=== PATIENT | female | born 1940 | race Caucasian/White ===

== ENCOUNTER 2018-04-17 13:40 | Emergency (ER) | payer OTHER, MEDICARE ==
[2018-04-17 14:12] VITALS: BP 116/73
--- NOTE | 2018-04-17 15:21 | UC ---
Abdominal Pain Female HPI - HPI Summary HPI Summary: 78 y/o female presents to the urgent care c/o RUQ abdominal pain for the past 5 days. Pt though it was her bra which was causing pressure, then she noticed it has increase in severity w/ palpation. Pain is dull and it sometimes relief by passing gas. Pt states she eats a lot of vegetables which makes her very gassy. Pt also c/o of insect bite for the past 4 days w/ itchiness, but since she has been scratching a lot, it looks infected and bigger today. Pt denies fever, SOB , HERNANDEZ, dizziness, N/V/D, blood in the stool, chest pain, recent weight loss. Pt denies any abdominal surgeries. Her BM are normal and she has been urinating well. Pt has a colonoscopy done 2 months ago which was negative. Pt has not taking anything to alleviate symptoms. - History of Current Complaint Chief Complaint: UCAbdominalPain Stated Complaint: SIDE PAIN,BUG BITE Time Seen by Provider: 04/17/18 14:48 Hx Obtained From: Patient ?: No Onset/Duration: Gradual Onset, Lasting Days - 5 days, Still Present Timing: Intermittent Episodes Lasting: - minutes Pain Intensity: 0 Allergies/Adverse Reactions: Allergies Allergy/AdvReac Type Severity Reaction Status Date / Time No Known Allergies Allergy Verified 04/17/18 14:12 PMH/Surg Hx/FS Hx/Imm Hx - Surgical History Surgical History: Yes Surgery Procedure, Year, and Place: HEMMOHROIDECTOMY . COSMETIC FACIAL 1999. COSMETIC FACE 1988 - Social History Alcohol Use: None Alcohol Amount: 1 DRINK AT [place] Substance Use Type: None Smoking Status (MU): Former Smoker Amount Used/How Often: 1 PACK WEEK When Did the Patient Quit Smoking/Using Tobacco: 2003 - Immunization History Most Recent Influenza Vaccination: 2007 Most Recent Tetanus Shot: 12/2012 Most Recent Pneumonia Vaccination: 2006 Physical Exam - Summary Physical Exam Summary: Vital Signs Reviewed: Yes General:Patient is a well developed and nourished female who is sitting comfortable in the examining table. Patient is not in any acute respiratory distress. Eyes: Positive: Conjunctiva Clear - PERRLA, EOMI, fundi grossly normal ENT: Positive: Normal ENT inspection, Hearing grossly normal, Pharynx normal, TMs normal Neck: Positive: Supple, Nontender, No Lymphadenopathy Respiratory: Positive: Chest non-tender, Lungs clear, Normal breath sounds, No respiratory distress Cardiovascular: Positive: RRR,S1 and S2 present, No Murmur, Pulses Normal, Brisk Capillary Refill Abdomen Description: Positive: Nontender, Other: - Abd: Flat with no distention. No surface trauma, scars, incisions. hyperactive bowel sounds present in all four quadrants. No tenderness, guarding, rigidity to palpation. No masses palpated, no pulsation in epigastric area. No organomegaly. Negative Edon signs. No periumbilical tenderness. No rebound in the lower quadrants. NT over McBurneys point. Left side suprapubic tenderness with no distension. Good femoral pulses bilaterally. No hernia noted. No CVAT bilaterally Musculoskeletal: Positive: Strength Intact, ROM Intact, No Edema,FROM in all major joints, no edema, no cyanosis or clubbing. Neuro: Alert and oriented x 3. No acute neurological deficits. Speech is normal. Psychological: WNL Skin: Dry and warm Triage Information Reviewed: Yes Vital Signs: Initial Vital Signs Temp 97.9 F 04/17/18 14:08 Pulse 80 04/17/18 14:08 Resp 12 04/17/18 14:08 BP 116/73 04/17/18 14:08 Pulse Ox 99 04/17/18 14:08 Abd Pain Female Course/Dx - Course Course Of Treatment: 78 y/o female presents to the urgent care c/o RUQ abdominal pain for the past 5 days. Pt though it was her bra which was causing pressure, then she noticed it has increase in severity w/ palpation. Pain is dull and it sometimes relief by passing gas. Pt states she eats a lot of vegetables which makes her very gassy. Pt also c/o of insect bite for the past 4 days w/ itchiness, but since she has been scratching a lot, it looks infected and bigger today. Pt denies fever, SOB, HERNANDEZ, dizziness, N/V/D, blood in the stool, chest pain, recent weight loss. Pt denies any abdominal surgeries. Her BM are normal and she has been urinating well. Pt has a colonoscopy done 2 months ago which was negative. Pt has not taking anything to alleviate symptoms. Hx obtained. - Differential Dx/Diagnosis Differential Diagnosis: Appendicitis, Constipation, Gall Bladder Disease, Peptic Ulcer Disease, Urinary Tract Infection, Other - gas and bloating, cellulitis, Provider Diagnoses: 1- RUQ abdominal pain. 2- Rt forearm cellulitis s/p insect bite. 3-Gas and bloating Discharge - Sign-Out/Discharge Documenting (check all that apply): Patient Departure - D/c home All imaging exams completed and their final reports reviewed: No Studies - Discharge Plan Condition: Stable Disposition: HOME Prescriptions: Cephalexin CAP* [Keflex CAP*] 500 mg PO QID #28 cap Simethicone TAB* [Mylicon TAB*] 80 mg PO AC PRN #20 tab.chew PRN Reason: gas Triamcinolone 0.1% CREAM(NF) [Kenalog 0.1% Cream (NF)] 1 applic TOPICAL BID #1 tube Patient Education Materials: Cellulitis (ED), Acute Abdominal Pain (DC), Gas and Bloating (ED) Referrals: Arianna Munson MD [Primary Care Provider] - 1 Day Additional Instructions: 1-Please take full course of Antibiotic. 2- If redness and swelling doubles in size beyond what was demarcated after 48 hrs of taking antibiotic and fever develops please go to the ER immediately. 3-Please take Simethicone PO as directed to alleviate gas and bloating. Avoid gas producing food until symptoms resolve. Please f/u w/ your PCP Dr Munson in tomorrow's appt for further management in your symptoms. 4- At this moment we don't have ultrasound available to r/o cholecystitis. If Rt side abdominal pain becomes severe and you develop nausea, vomiting please go immediately to the Er for further evaluation and treatment. - Billing Disposition and Condition Condition: STABLE Disposition: Home
== END 2018-04-17 15:30 | disposition home or self-care (01) ==
LOC: UCEAST 13:40
DX: R10.11 Right upper quadrant pain (principal); R14.0 Abdominal distension (gaseous); L03.113 Cellulitis of right upper limb; Z87.891 Personal history of nicotine dependence
CPT/HCPCS: 81003; 99212; G0463

== ENCOUNTER 2018-06-02 16:53 | Emergency (ER) | payer OTHER, MEDICARE ==
[2018-06-02 17:17] VITALS: BP 153/82
--- NOTE | 2018-06-02 17:46 | UC ---
GI Bleed HPI - HPI Summary HPI Summary: This patient is a 78 year old F presenting to [facility] with a chief complaint of difficulty with BM and hemorrhoids since a couple weeks ago. The patient believes that she has some blockage because her stool is not going through. She gave herself a rectal exam and she was able to get through but is unsure if anything is there. She also reports that she has a small BM every morning. The patient rates the pain 5/10 in severity. Symptoms aggravated by nothing. Symptoms alleviated by nothing. Patient reports back pain (intermittent, worsened today), decreased sleep, and some abdominal discomfort. Patient denies abdominal pain, fever, and chills. The patient has stage four liver CA and had a colonoscopy in March 2018. She was seen by her PCP to take a PET scan and after waiting for her results, one of the nurses at her PCP office told her to the ED. She went to the ED in [place] but they had a 4 hour wait, so they came to [facility]. - History Of Current Complaint Chief Complaint: UCGI Stated Complaint: BACK INJURY Time Seen by Provider: 06/02/18 17:26 Hx Obtained From: Patient Onset/Duration: Sudden Onset, Lasting Weeks, Still Present Timing: Constant Severity Initially: Moderate Severity Currently: Moderate Pain Intensity: 5 Pain Scale Used: 0-10 Numeric Aggravating Factor(s): Other - nothing Alleviating Factor(s): Other - nothing Associated Signs And Symptoms: Positive: Back Pain - intermittent, worsened today, Other - reports decreased sleep, and some abdominal discomfort; denies abdominal pain, fever, and chills - Allergies/Home medications Allergies/Adverse Reactions: Allergies Allergy/AdvReac Type Severity Reaction Status Date / Time No Known Allergies Allergy Verified 06/02/18 17:17 PMH/Surg Hx/FS Hx/Imm Hx Endocrine History: Thyroid Disease, Other Other Endocrine History: denies DM Cardiovascular History: Other Other Cardiovascular History: denies HTN - Surgical History Surgical History: Yes Surgery Procedure, Year, and Place: HEMMOHROIDECTOMY . COSMETIC FACIAL 1999. COSMETIC FACE 1988 - Family History Known Family History: Positive: Other Family History: hypothyrodism - Social History Alcohol Use: None Alcohol Amount: 1 DRINK AT [place] Substance Use Type: None Smoking Status (MU): Former Smoker Amount Used/How Often: 1 PACK WEEK When Did the Patient Quit Smoking/Using Tobacco: 2003 - Immunization History Most Recent Influenza Vaccination: 2007 Most Recent Tetanus Shot: 12/2012 Most Recent Pneumonia Vaccination: 2006 Review of Systems Constitutional: Other - denies fever and chills Gastrointestinal: Other - has abdominal discomfort but denies abdominal pain Musculoskeletal: Other: - back pain Neurological: Other - decreased sleep All Other Systems Reviewed And Are Negative: Yes Physical Exam - Summary Physical Exam Summary: VITAL SIGNS: Reviewed. GENERAL: Patient is a well-developed and nourished FEMALE who is lying comfortable in the stretcher. Patient is not in any acute respiratory distress. HEAD AND FACE: Normocephalic EYES: PERRLA, EOMI x 2. EARS: Hearing grossly intact. MOUTH: Oropharynx within normal limits. NECK: Supple, trachea is midline, no adenopathy, no JVD, no carotid bruit. CHEST: Symmetric, no tenderness at palpation LUNGS: Clear to auscultation bilaterally. No wheezing or crackles. CVS: Regular rate and rhythm, S1 and S2 present, no murmurs or gallops appreciated. ABDOMEN: Soft, non-tender. Bowel sounds are normal. No abdominal abnormal pulsations. EXTREMITIES: Full ROM in all major joints, no edema, no cyanosis or clubbing. NEURO: Alert and oriented x 3. No acute neurological deficits. Speech is normal and follows commands. SKIN: Dry and warm RECTAL EXAM: Female area manager present. External hemorrhoids but not currently bleeding. Bowel is empty, no stool. Good sphincter tones. Triage Information Reviewed: Yes Vital Signs: Initial Vital Signs Temp 99.4 F 06/02/18 17:07 Pulse 67 06/02/18 17:07 Resp 16 06/02/18 17:07 BP 153/82 06/02/18 17:07 Pulse Ox 97 06/02/18 17:07 Vital Signs Reviewed: Yes Diagnostics - Radiology Abdomen XR Radiology Interpretation Completed By: Radiologist - Dr. Kirk has reviewed this radiology report. Bleed Course/Dx - Course Course Of Treatment: This patient is a 78-year-old female who came to the urgent care with Family members complaining that she is having some rectal pain. She also reports that she is having pain radiating to the back. She reports that she has liver cancer is stage IV and today she went to see the primary care physician who had order a PET scan and they awaiting for the results. She also will have an anoscopy study on June 11. She also reports that she is passing gas and she is having small bowel movements. She is to take ibuprofen for the pain which he hasn't taken today. Today she came into the emergency department because the doctor's nurse recommended to go to the emergency department for further workup and management. She reports that she went to [facility] emergency department however the waiting time was approximately 4 hours. Therefore, she decided to come to the urgent care. In the physical exam the patient is a thin female. No acute distress. The patient is ambulating with no distress. I perform an abdominal exam and she abdomen itself is nontender with positive bowel sounds. Rectal exam the patient has external hemorrhoids which are not bleeding, she has good sphincter tone, and the voult is empty. She reports that she continues to have back pain. Therefore, because of the comorbidities of the Liver cancer with metastases the patient was recommended to go to the emergency department for further workup and management. Patient understands and agrees. The patient verbalizes the importance of going to the emergency department. The patient's family member also agree and they will take the patient to the emergency department. - Differential Dx/Diagnosis Provider Diagnoses: Back pain Discharge - Sign-Out/Discharge Documenting (check all that apply): Patient Departure - to the ED All imaging exams completed and their final reports reviewed: No Studies - Discharge Plan Condition: Stable Disposition: HOME-RECOMMEND TO ED Patient Education Materials: Back Pain (ED) Referrals: Arianna Munson MD [Primary Care Provider] - Additional Instructions: Patient will be discharged to the emergency department for further workup and management. She declined ambulance transfer. - Billing Disposition and Condition Condition: STABLE Disposition: Home-Recommend to ED - Attestation Statements Document Initiated by Scribe: Yes Documenting Scribe: Trae Flores Provider For Whom Montez is Documenting (Include Credential): Jamil Kirk MD Scribe Attestation: Trae Jean, scribed for Jamil Kirk MD on 06/02/18 at 1822. Scribe Documentation Reviewed: Yes Provider Attestation: The documentation as recorded by the Trae desai accurately reflects the service I personally performed and the decisions made by me, Jamil Kirk MD
== END 2018-06-02 18:00 | disposition home health service (06) ==
LOC: UCEAST 16:53
DX: M54.9 Dorsalgia, unspecified (principal); E07.9 Disorder of thyroid, unspecified
CPT/HCPCS: 99212; G0463

== ENCOUNTER 2018-09-26 11:50 | Inpatient (IN) | payer OTHER, MEDICARE ==
[2018-09-26] MEDS ORDERED: Acetaminophen TAB* 325 MG PO PRN (15:42)
[2018-09-26] MEDS ORDERED: Senna TAB PO PRN (15:42)
[2018-09-26] MEDS ORDERED: Prochlorperazine TAB* 10 MG PO PRN (15:58)
[2018-09-26] MEDS ORDERED: Magnesium Hydroxide LIQ* 30 ML UDC PO PRN (16:21)
[2018-09-26] MEDS: oxyCODONE TAB* 5 MG TAB PO PRN (17:52)
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
[2018-09-26] MEDS: Dronabinol CAP* 2.5 MG PO SCH (21:50)
[2018-09-26] MEDS: Enoxaparin(*) 30 MG/0.3 ML SYR SUBCUT SCH (21:51)
[2018-09-26] MEDS: Docusate CAP* 100 MG PO SCH (21:54)
[2018-09-27] MEDS: oxyCODONE TAB* 5 MG TAB PO PRN ×4 (00:31→21:04)
[2018-09-27] MEDS: Levothyroxine TAB* 88 MCG TAB PO SCH (05:01)
[2018-09-27 05:16] LABS: Albumin 2.4 g/dL (3.2-5.2); BUN/Creatinine Ratio 39.5 (8-20); Calcium 7.9 mg/dL (8.6-10.3); EGFR African American 198.7 (>60); EGFR Non-African American 164.2 (>60); Globulin 2.5 g/dL (2-4); Potassium 3.9 mmol/L (3.5-5.0); Total Bilirubin 8.9 mg/dL (0.2-1.0); Total Protein 4.9 g/dL (6.4-8.9)
[2018-09-27 05:24] LABS: Hematocrit 26 % (35-47); Hemoglobin 8.8 g/dl (12.0-16.0); Mean Corpuscular HGB Conc 33 g/dl (31-36); Mean Corpuscular Hemoglobin 31 pg (27-31); Mean Corpuscular Volume 92 fL (80-97); Mean Platelet Volume 7.8 fL (7.4-10.4); Platelet Count 294 10^3/ul (150-450); Red Blood Count 2.84 10^6/ul (4.00-5.40); Red Cell Distribution Width 18 % (10.5-15); White Blood Count 9.5 10^3/ul (3.5-10.8)
[2018-09-27 05:25] LABS: ABS Nucleated RBC 0 10^3/ul; Nucleated Red Blood Cells % 0.1
[2018-09-27 05:43] LABS: Lymphocytes % 4 %; Monocytes % 5 %; Neutrophil % 87 %
[2018-09-27 05:46] LABS: Microcytosis 1+
[2018-09-27] MEDS: Docusate CAP* 100 MG PO SCH ×2 (09:20→21:05)
[2018-09-27] MEDS: Dronabinol CAP* 2.5 MG PO SCH (09:20)
[2018-09-27 16:52] LABS: Urine Appearance Cloudy; Urine Bacteria Absent (Absent); Urine Bilirubin 2+ (Negative); Urine Blood Negative (Negative); Urine Color Amber; Urine Glucose Negative (Negative); Urine Ketones Negative (Negative); Urine Nitrite Negative (Negative); Urine Protein 1+(30 mg/dL) (Negative); Urine Red Blood Cell Absent (Absent); Urine Specific Gravity 1.027 (1.010-1.030); Urine Squamous Epithelial Cell Present (Absent); Urine Transitional Epithelial Present (Absent); Urine Urobilinogen Positive (Negative); Urine White Blood Cell 3+(>20/hpf) (Absent)
--- NOTE | 2018-09-27 19:20 | PN ---
Progress Note Date of Service: 09/27/18 Note: SUJEY LANGFORD was visited. Therapy notes read and reviewed. Her PO intake and appetite remain poor and she remains confused. A U/A is consistent with a UTI and will start Levaquin for this. May need IV fluids. Current Medications: Active Medications Generic Name Dose Route Start Last Admin Trade Name Freq PRN Reason Stop Dose Admin Acetaminophen 650 mg 09/26/18 15:42 Tylenol Tab* PO Q6H PRN FEVER/PAIN Docusate Sodium 100 mg 09/26/18 21:00 09/27/18 09:20 Colace Cap* PO 100 mg BID CECELIA Administration Enoxaparin Sodium 30 mg 09/26/18 21:00 09/26/18 21:51 Lovenox(*) SUBCUT 30 mg Q24H CECELIA Administration Lactulose 15 ml 09/27/18 21:00 Lactulose* PO BID CECELIA Levofloxacin 250 mg 09/27/18 20:00 Levaquin Tab* PO Q24H CECELIA Levothyroxine Sodium 88 mcg 09/27/18 06:00 09/27/18 05:01 Synthroid Tab* PO 88 mcg DAILY@0600 CECELIA Administration Magnesium Hydroxide 30 ml 09/26/18 16:21 Milk Of Magnesia Liq* PO Q6H PRN CONSTIPATION Oxycodone HCl 5 mg 09/26/18 17:02 09/27/18 16:19 Roxycodone Tab* PO 5 mg Q4H PRN Administration PAIN - MODERATE TO SEVERE Oxycodone HCl 10 mg 09/26/18 17:04 Roxycodone Tab* PO Q4H PRN PAIN - SEVERE Prochlorperazine 10 mg 09/26/18 15:58 Compazine Tab* PO Q8HR PRN NAUSEA/VOMITING Senna 2 tab 09/26/18 15:42 Senokot Tab* PO BEDTIME PRN CONSTIPATION Vital Signs: Vital Signs Temp Pulse Resp BP Pulse Ox 98.2 F 69 18 117/65 100 09/27/18 15:35 09/27/18 15:35 09/27/18 18:44 09/27/18 15:35 09/27/18 18:09 Lab Results: Laboratory Results - last 24 hr 09/27/18 09/27/18 09/27/18 04:46 04:46 04:46 WBC 9.5 RBC 2.84 L Hgb 8.8 L Hct 26 L MCV 92 MCH 31 MCHC 33 RDW 18 H Plt Count 294 MPV 7.8 Neut % (Auto) Not Reportable Lymph % (Auto) Not Reportable Bracken % (Auto) Not Reportable Eos % (Auto) Not Reportable Baso % (Auto) Not Reportable Absolute Neuts (auto) Not Reportable Absolute Lymphs (auto) Not Reportable Absolute Monos (auto) Not Reportable Absolute Eos (auto) Not Reportable Absolute Basos (auto) Not Reportable Absolute Nucleated RBC 0 Neutrophils % 87 Lymphocytes % 4 Monocytes % 5 Eosinophils % 4 Nucleated RBC % 0.1 Normal RBC Morphology Not Reportable Hypochromasia 2+ Microcytosis 1+ Target Cells 1+ Stomatocytes 1+ Sodium 137 Potassium 3.9 Chloride 107 Carbon Dioxide 26 Anion Gap 4 BUN 15 Creatinine 0.38 L Est GFR ( Amer) 198.7 Est GFR (Non-Af Amer) 164.2 BUN/Creatinine Ratio 39.5 H Glucose 109 H Calcium 7.9 L Total Bilirubin 8.90 H AST 91 H ALT 67 H Alkaline Phosphatase 2000 H Ammonia 60 H Total Protein 4.9 L Albumin 2.4 L Globulin 2.5 Albumin/Globulin Ratio 1.0 Urine Color Urine Appearance Urine pH Ur Specific Kimball Urine Protein Urine Ketones Urine Blood Urine Nitrate Urine Bilirubin Urine Urobilinogen Ur Leukocyte Esterase Urine WBC (Auto) Urine RBC (Auto) Ur Squamous Epith Cells Ur Transition Epith Cell Urine Bacteria Urine Glucose 09/27/18 16:40 WBC RBC Hgb Hct MCV MCH MCHC RDW Plt Count MPV Neut % (Auto) Lymph % (Auto) Bracken % (Auto) Eos % (Auto) Baso % (Auto) Absolute Neuts (auto) Absolute Lymphs (auto) Absolute Monos (auto) Absolute Eos (auto) Absolute Basos (auto) Absolute Nucleated RBC Neutrophils % Lymphocytes % Monocytes % Eosinophils % Nucleated RBC % Normal RBC Morphology Hypochromasia Microcytosis Target Cells Stomatocytes Sodium Potassium Chloride Carbon Dioxide Anion Gap BUN Creatinine Est GFR ( Amer) Est GFR (Non-Af Amer) BUN/Creatinine Ratio Glucose Calcium Total Bilirubin AST ALT Alkaline Phosphatase Ammonia Total Protein Albumin Globulin Albumin/Globulin Ratio Urine Color Linda Urine Appearance Cloudy Urine pH 5.0 Ur Specific Kimball 1.027 Urine Protein 1+(30 mg/dl) A Urine Ketones Negative Urine Blood Negative Urine Nitrate Negative Urine Bilirubin 2+ A Urine Urobilinogen Positive A Ur Leukocyte Esterase 1+ A Urine WBC (Auto) 3+(>20/hpf) A Urine RBC (Auto) Absent Ur Squamous Epith Cells Present A Ur Transition Epith Cell Present A Urine Bacteria Absent Urine Glucose Negative Exam: GENERAL: Jaundiced, thin LUNGS: Clear HEART: reg rhythm ABDOMEN: Soft, +BS EXTREMITIES: Decreased bulk NEUROLOGIC: Alert, follows commands, gets confused. Moves all 4 extremities Assessment/Plan: 1. Pancreatobiliary cancer, stage IV: Chemo has not slowed progression. PT/OT. Appt at [facility] Oct 06 2. 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 Bilirubin >8. Alk Phos 2000. Ammonia 60. 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 Urinary Tract Infection: Levaquin 5. Poor PO: Marinol has not helped and may be contributing to her confusion. Will d/c. May need IVF 6. Analgesia: Oxycodone 7. DVT Prophylaxis: Lovenox 8. Advanced Directives: Full code. Daughter is HCP 09/27/18 19:22
[2018-09-27] MEDS: Levofloxacin TAB* 250 MG PO SCH (21:03)
[2018-09-27] MEDS: Lactulose* 15 ML UDC PO SCH (21:16)
[2018-09-27] MEDS: Enoxaparin(*) 30 MG/0.3 ML SYR SUBCUT SCH (21:30)
[2018-09-28] MEDS: Levothyroxine TAB* 88 MCG TAB PO SCH (06:16)
[2018-09-28] MEDS: oxyCODONE TAB* 5 MG TAB PO PRN ×3 (06:16→17:34)
[2018-09-28] MEDS: Docusate CAP* 100 MG PO SCH ×2 (08:08→20:56)
[2018-09-28] MEDS: Lactulose* 15 ML UDC PO SCH ×2 (08:08→20:54)
[2018-09-28] MEDS: Magic Mouth Was-BEN/MAAL/LIDO SWISH SPIT SCH ×3 (14:27→20:59)
--- NOTE | 2018-09-28 19:46 | PN ---
Progress Note Date of Service: 09/28/18 Note: SUJEY LANGFORD was visited. Therapy notes read and reviewed. She still has no appetite. She has edema in hands and feet likely from hypoalbunimemia. Am hesitant to give IV fluids. She does not like dairy or soy, so this makes it hard. Her daughter may try unsweetened almond milk. Little appetite. Still confused but pleasant. Her daughter is requesting Benadryl for sleep. Urine cultures: No growth Current Medications: Active Medications Generic Name Dose Route Start Last Admin Trade Name Freq PRN Reason Stop Dose Admin Acetaminophen 650 mg 09/26/18 15:42 Tylenol Tab* PO Q6H PRN FEVER/PAIN Docusate Sodium 100 mg 09/26/18 21:00 09/28/18 08:08 Colace Cap* PO Not Given BID CECELIA Enoxaparin Sodium 30 mg 09/26/18 21:00 09/27/18 21:30 Lovenox(*) SUBCUT 30 mg Q24H CECELIA Administration Lactulose 15 ml 09/27/18 21:00 09/28/18 08:08 Lactulose* PO 15 ml BID CECELIA Administration Levofloxacin 250 mg 09/27/18 20:30 09/27/18 21:03 Levaquin Tab* PO 09/28/18 23:59 250 mg Q24H CECELIA Administration Levothyroxine Sodium 88 mcg 09/27/18 06:00 09/28/18 06:16 Synthroid Tab* PO 88 mcg DAILY@0600 CECELIA Administration Magnesium Hydroxide 30 ml 09/26/18 16:21 Milk Of Magnesia Liq* PO Q6H PRN CONSTIPATION Multi-Ingredient Mouthwash/Gargle 5 ml 09/28/18 13:00 09/28/18 18:39 Magic Mouth Was-Luis/Maal/Lido* SWISH SPIT Not Given QID CECELIA Oxycodone HCl 5 mg 09/26/18 17:02 09/28/18 17:34 Roxycodone Tab* PO 5 mg Q4H PRN Administration PAIN - MODERATE TO SEVERE Oxycodone HCl 10 mg 09/26/18 17:04 Roxycodone Tab* PO Q4H PRN PAIN - SEVERE Prochlorperazine 10 mg 09/26/18 15:58 Compazine Tab* PO Q8HR PRN NAUSEA/VOMITING Senna 2 tab 09/26/18 15:42 Senokot Tab* PO BEDTIME PRN CONSTIPATION Vital Signs: Vital Signs Temp Pulse Resp BP Pulse Ox 98.4 F 71 16 138/68 100 09/28/18 15:36 09/28/18 15:36 09/28/18 17:34 09/28/18 15:36 09/28/18 15:36 Exam: GENERAL: Jaundiced, cachectic LUNGS: Clear HEART: reg rhythm ABDOMEN: Soft, +BS EXTREMITIES: Decreased bulk NEUROLOGIC: Alert, follows commands, gets confused. Moves all 4 extremities Assessment/Plan: 1. Pancreatobiliary cancer, stage IV: Chemo has not slowed progression. PT/OT. Appt at [facility] Oct 06 2. 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 Urinary Tract Infection: Levaquin. Her urine cultures were negative so will d /c 5. Poor PO: Marinol has not helped and may have added to her confusion so stopped 6. Analgesia: Oxycodone 7. DVT Prophylaxis: Lovenox 8. Advanced Directives: Full code. Daughter is HCP 09/28/18 19:46
[2018-09-28] MEDS: Levofloxacin TAB* 250 MG PO SCH (20:54)
[2018-09-28] MEDS: Enoxaparin(*) 30 MG/0.3 ML SYR SUBCUT SCH (20:56)
[2018-09-29] MEDS: oxyCODONE TAB* 5 MG TAB PO PRN ×4 (01:04→20:10)
[2018-09-29] MEDS: Levothyroxine TAB* 88 MCG TAB PO SCH (05:35)
[2018-09-29] MEDS: Docusate CAP* 100 MG PO SCH ×2 (07:32→20:04)
[2018-09-29] MEDS: Lactulose* 15 ML UDC PO SCH ×2 (07:46→20:04)
[2018-09-29] MEDS: Magic Mouth Was-BEN/MAAL/LIDO SWISH SPIT SCH ×4 (10:13→20:05)
--- NOTE | 2018-09-29 10:18 | PN ---
Progress Note Date of Service: 09/29/18 Note: SUJEY LANGFORD was visited. Nursing and therapy notes read and reviewed. Still poor appetite with minimal po. Has some mild lower abdominal discomfort. No chest pain, shortness of breath or abdominal pain. Current Medications: Active Medications Generic Name Dose Route Start Last Admin Trade Name Freq PRN Reason Stop Dose Admin Acetaminophen 650 mg 09/26/18 15:42 Tylenol Tab* PO Q6H PRN FEVER/PAIN Docusate Sodium 100 mg 09/26/18 21:00 09/29/18 07:32 Colace Cap* PO Not Given BID CECELIA Enoxaparin Sodium 30 mg 09/26/18 21:00 09/28/18 20:56 Lovenox(*) SUBCUT 30 mg Q24H CECELIA Administration Lactulose 15 ml 09/27/18 21:00 09/29/18 07:46 Lactulose* PO 15 ml BID CECELIA Administration Levothyroxine Sodium 88 mcg 09/27/18 06:00 09/29/18 05:35 Synthroid Tab* PO 88 mcg DAILY@0600 [facility] Administration Magnesium Hydroxide 30 ml 09/26/18 16:21 Milk Of Magnesia Liq* PO Q6H PRN CONSTIPATION Multi-Ingredient Mouthwash/Gargle 5 ml 09/28/18 13:00 09/29/18 10:13 Magic Mouth Was-Luis/Maal/Lido* SWISH SPIT 5 ml QID CECELIA Administration Oxycodone HCl 5 mg 09/26/18 17:02 09/29/18 07:46 Roxycodone Tab* PO 5 mg Q4H PRN Administration PAIN - MODERATE TO SEVERE Oxycodone HCl 10 mg 09/26/18 17:04 Roxycodone Tab* PO Q4H PRN PAIN - SEVERE Prochlorperazine 10 mg 09/26/18 15:58 Compazine Tab* PO Q8HR PRN NAUSEA/VOMITING Senna 2 tab 09/26/18 15:42 Senokot Tab* PO BEDTIME PRN CONSTIPATION Vital Signs: Vital Signs Temp Pulse Resp BP Pulse Ox 98.6 F 84 16 126/67 99 09/29/18 05:37 09/29/18 05:37 09/29/18 07:46 09/29/18 05:37 09/29/18 05:37 Exam: GENERAL: Jaundiced, cachectic. No acute distress. Alert and appropriate. LUNGS: Clear to auscultation bilaterally. HEART: regular rate and rhythm ABDOMEN: Soft, +bowel sounds, non-tender, non-distended. No peritoneal signs. EXTREMITIES: Bilateral LE edema. Negative Homans. No calf pain. NEUROLOGIC: CN II-XII intact. Motor 4+/5 BUE and BLE with normal sensation. Assessment/Plan: 1. Pancreatobiliary cancer, stage IV: Chemo has not slowed progression. PT/OT. Appt at [facility] Oct 06 2. 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 Urinary Tract Infection: s/p Levaquin. Her urine cultures were negative so will d/c 5. Poor PO: Marinol did not help and may have added to her confusion so d/c'd 6. Analgesia: Oxycodone prn 7. DVT Prophylaxis: Lovenox 8. Advanced Directives: Full code. Daughter is HCP 09/29/18 10:17
--- NOTE | 2018-09-29 14:46 | CONSULT ---
Palliative / Hospice Consult Ordering Provider: Annita Rosado - Subjective Code Status: DNR Advance Directives Location: No Advance Directives MOLST Part A Completed: Yes - completed with pt and daughter Date: 09/29/18 MOLST Part E Completed:: Yes - completed with pt and daughter Date: 09/29/18 - History or Present Illness History or Present Illness: 78 yo female with pancreatic biliary cancer and cholangioma cancer diagnosed 2017 was treated at [facility] for stent placement due to hepatic mass met which was causing elevated bilirubin. She was transferred to [facility] for rehab. Her other medical problems include hypothyroidism, hepatic encephalopathy and current UTI. She has received 3 cycles of chemo with no improvement with her cancer. She is a non smoker, no drugs and no ETOH use living with her daughter. Her passed several years ago with Lung Ca. He was on on hospice after a trial of chemotherapy. She has lost 7 kilos since Apr. Her albumin is 2.4, her tprot 4.9, tbili 8.9, alk phos 2000, ammonia 60 BUN/Cr 15/.38 egfr 164. Lab Values: Laboratory Last Values WBC 9.5 10^3/ul (3.5-10.8) 09/27/18 04:46 RBC 2.84 10^6/ul (4.00-5.40) L 09/27/18 04:46 Hgb 8.8 g/dl (12.0-16.0) L 09/27/18 04:46 Hct 26 % (35-47) L 09/27/18 04:46 MCV 92 fL (80-97) 09/27/18 04:46 MCH 31 pg (27-31) 09/27/18 04:46 MCHC 33 g/dl (31-36) 09/27/18 04:46 RDW 18 % (10.5-15) H 09/27/18 04:46 Plt Count 294 10^3/ul (150-450) 09/27/18 04:46 MPV 7.8 fL (7.4-10.4) 09/27/18 04:46 Neut % (Auto) Not Reportable 09/27/18 04:46 Lymph % (Auto) Not Reportable 09/27/18 04:46 [place] % (Auto) Not Reportable 09/27/18 04:46 Eos % (Auto) Not Reportable 09/27/18 04:46 Baso % (Auto) Not Reportable 09/27/18 04:46 Absolute Neuts (auto) Not Reportable 09/27/18 04:46 Absolute Lymphs (auto) Not Reportable 09/27/18 04:46 Absolute Monos (auto) Not Reportable 09/27/18 04:46 Absolute Eos (auto) Not Reportable 09/27/18 04:46 Absolute Basos (auto) Not Reportable 09/27/18 04:46 Absolute Nucleated RBC 0 10^3/ul 09/27/18 04:46 Neutrophils % 87 % 09/27/18 04:46 Lymphocytes % 4 % 09/27/18 04:46 Monocytes % 5 % 09/27/18 04:46 Eosinophils % 4 % 09/27/18 04:46 Nucleated RBC % 0.1 09/27/18 04:46 Normal RBC Morphology Not Reportable 09/27/18 04:46 Hypochromasia 2+ 09/27/18 04:46 Microcytosis 1+ 09/27/18 04:46 Target Cells 1+ 09/27/18 04:46 Stomatocytes 1+ 09/27/18 04:46 Sodium 137 mmol/L (135-145) 09/27/18 04:46 Potassium 3.9 mmol/L (3.5-5.0) 09/27/18 04:46 Chloride 107 mmol/L (101-111) 09/27/18 04:46 Carbon Dioxide 26 mmol/L (22-32) 09/27/18 04:46 Anion Gap 4 mmol/L (2-11) 09/27/18 04:46 BUN 15 mg/dL (6-24) 09/27/18 04:46 Creatinine 0.38 mg/dL (0.51-0.95) L 09/27/18 04:46 Est GFR ( Amer) 198.7 (>60) 09/27/18 04:46 Est GFR (Non-Af Amer) 164.2 (>60) 09/27/18 04:46 BUN/Creatinine Ratio 39.5 (8-20) H 09/27/18 04:46 Glucose 109 mg/dL (70-100) H 09/27/18 04:46 Calcium 7.9 mg/dL (8.6-10.3) L 09/27/18 04:46 Total Bilirubin 8.90 mg/dL (0.2-1.0) H 09/27/18 04:46 AST 91 U/L (13-39) H 09/27/18 04:46 ALT 67 U/L (7-52) H 09/27/18 04:46 Alkaline Phosphatase 2000 U/L (34-104) H 09/27/18 04:46 Ammonia 60 mcmol/L (16-53) H 09/27/18 04:46 Total Protein 4.9 g/dL (6.4-8.9) L 09/27/18 04:46 Albumin 2.4 g/dL (3.2-5.2) L 09/27/18 04:46 Globulin 2.5 g/dL (2-4) 09/27/18 04:46 Albumin/Globulin Ratio 1.0 (1-3) 09/27/18 04:46 Urine Color [place] 09/27/18 16:40 Urine Appearance Cloudy 09/27/18 16:40 Urine pH 5.0 (5-9) 09/27/18 16:40 Ur Specific [place] 1.027 (1.010-1.030) 09/27/18 16:40 Urine Protein 1+(30 mg/dl) (Negative) A 09/27/18 16:40 Urine Ketones Negative (Negative) 09/27/18 16:40 Urine Blood Negative (Negative) 09/27/18 16:40 Urine Nitrate Negative (Negative) 09/27/18 16:40 Urine Bilirubin 2+ (Negative) A 09/27/18 16:40 Urine Urobilinogen Positive (Negative) A 09/27/18 16:40 Ur Leukocyte Esterase 1+ (Negative) A 09/27/18 16:40 Urine WBC (Auto) 3+(>20/hpf) (Absent) A 09/27/18 16:40 Urine RBC (Auto) Absent (Absent) 09/27/18 16:40 Ur Squamous Epith Cells Present (Absent) A 09/27/18 16:40 Ur Transition Epith Cell Present (Absent) A 09/27/18 16:40 Urine Bacteria Absent (Absent) 09/27/18 16:40 Urine Glucose Negative (Negative) 09/27/18 16:40 - Objective Active Medications: Acetaminophen (Tylenol Tab*) 650 mg PO Q6H PRN PRN Reason: FEVER/PAIN Docusate Sodium (Colace Cap*) 100 mg PO BID [facility] Last Admin: 09/29/18 07:32 Dose: Not Given Enoxaparin Sodium (Lovenox(*)) 30 mg SUBCUT Q24H [facility] Last Admin: 09/28/18 20:56 Dose: 30 mg Lactulose (Lactulose*) 15 ml PO BID [facility] Last Admin: 09/29/18 07:46 Dose: 15 ml Levothyroxine Sodium (Synthroid Tab*) 88 mcg PO DAILY@0600 [facility] Last Admin: 09/29/18 05:35 Dose: 88 mcg Magnesium Hydroxide (Milk Of Magnesia Liq*) 30 ml PO Q6H PRN PRN Reason: CONSTIPATION Multi-Ingredient Mouthwash/Gargle (Magic Mouth Was-Luis/Maal/Lido*) 5 ml SWISH SPIT QID [facility] Last Admin: 09/29/18 14:17 Dose: 5 ml Oxycodone HCl (Roxycodone Tab*) 5 mg PO Q4H PRN PRN Reason: PAIN - MODERATE TO SEVERE Last Admin: 09/29/18 12:01 Dose: 5 mg Oxycodone HCl (Roxycodone Tab*) 10 mg PO Q4H PRN PRN Reason: PAIN - SEVERE Prochlorperazine (Compazine Tab*) 10 mg PO Q8HR PRN PRN Reason: NAUSEA/VOMITING Senna (Senokot Tab*) 2 tab PO BEDTIME PRN PRN Reason: CONSTIPATION Vital Signs: Vital Signs: Temp Pulse Resp BP Pulse Ox 98.6 F 84 16 126/67 99 09/29/18 05:37 09/29/18 05:37 09/29/18 14:21 09/29/18 05:37 09/29/18 05:37 Patient Weight: Weight 47.174 kg Intake and Output: Intake & Output 09/27/18 09/28/18 09/29/18 09/30/18 06:59 06:59 06:59 06:59 Intake Total 100 170 265 100 Output Total 100 700 100 Balance 100 70 -435 0 Weight 47.174 kg Intake: Oral 100 170 265 100 Output: Urine 100 700 100 Other: Estimated Void Medium Small # Bowel Movements 1 Estimated Stool Amount Medium Small # Voids 1 2 1 Eyes: - - mild icterus Ears/Nose/Mouth/Throat: Mucous Membranes Moist - sore on upper lip Cardiovascular: NL Sounds; No Murmurs; No JVD Respiratory: Clear to Auscultation Abdominal: NL Sounds; No Tenderness; No Distention Extremities: - - trace edema - Assessment Assessment: 78 yo female with pancreatic biliary cancer with mets not responsive to chemotherapy eligible for hospice - Plan Consult Plan (MU): Hospice Plan: Spoke with daughter Jen and pt. Initially when she was diagnosed daughter wasn' t as involved because mother had a friend that was helping her with decisions. Initially she wanted aggressive care and was a full code. Now she realizes the chemotherapy has not been effective and was hard to tolerate. She and her daughter are still discussing going to [facility] for a final evaluation which had been planned awhile ago. Recently she developed hepatic encephalopathy which is improving. We discussed MOLST and she doesn't want CPR, DNI nor a feeding tube. She expressed that she knows her prognosis is poor and doesn't want to with a lot of medical intervention instead focusing on pain control. She has a mouth ulcer which she is using magic mouthwash and morphine currently for pain. She will be going home with her daughter and wants to finish her physical therapy. Will try to coordinate with VNS and [facility] program. Also gave them information about hospice and sign on information. Her had on hospice and they had a positive experience. Daughter is her moms HCP and she is worried about making decisions for her. Explained that MOLST and hospice decision can be changed at anytime. Pt's appetite has decreased since her diagnosis, lost 7 kilos. KPS50%, PPS 50%. She qualifies for hospice because of her cancer diagnosis with mets and not responsive to chemotherapy. She is still employed and has health ins with medicare as a secondary. - Time On Unit Date of Evaluation: 09/29/18 Hospice Consult Time in: 12:00 Hospice Consult Time Out: 01:30 Hospice Consult Time Total: -630 > 50% of Time Spend In Counseling or Coordinating Care: Yes
[2018-09-29] MEDS: Enoxaparin(*) 30 MG/0.3 ML SYR SUBCUT SCH (20:04)
[2018-09-29] MEDS ORDERED: Mirtazapine TAB* 15 MG PO SCH (21:00)
--- NOTE | 2018-09-29 23:00 | CONS ---
CONSULTATION REPORT: DATE OF CONSULT: 09/29/18 REQUESTING PHYSICIAN IN CONSULTATION: Dr. Annita Colón. ATTENDING PHYSICIAN: Dr. Tony Lee (dictated by STEPHANY Rosenberg). REASON FOR CONSULTATION: Opinion on stability to leave [facility] for subacute rehab versus home with 24-hour care as requested by family. HISTORY OF PRESENT ILLNESS/HOSPITAL COURSE: I refer you to Dr. Pino's history and physical dictated on 09/26/18 for complete detail, but in short, Mrs. Calabrese is a 78-year-old female with a past medical history of hypothyroidism and pancreatobiliary cancer stage IV with hepatic encephalopathy. Since May 2018, she has been diagnosed with pancreatobiliary cancer after presenting for a CAT scan due to right-sided abdominal pain. She has had multiple rounds of chemotherapy. There has been no improvement or resolution of the cancer. She had previously been admitted to [facility] for stent placement. She was then referred to [facility] for rehabilitation. The patient is currently at [facility]. Her daughter, Jen Izaguirre, is involved in her care and plans to take Mrs. Calabrese to her home at discharge. She is currently intermittently confused. She has sores in her mouth that make it difficult to eat on top of the fact that she has a decreased appetite. Her daughter is concerned that the patient will not have adequate intake to sustain hers at home. The patient's daughter wonders if the patient is able to go home with her safely. The hospitalist team was asked to consult on this case. Currently, the patient denies chest pain, shortness of breath, headache, cough, fever, nausea, vomiting, diarrhea, or pain in the extremities. She states she has pain in her mouth from mouth sores. She states that she has diffuse abdominal pain. PAST MEDICAL HISTORY: 1. Pancreatobiliary cancer stage IV with hepatic encephalopathy. 2. Hypothyroidism. PAST SURGICAL HISTORY: Left hip replacement. CURRENT MEDICATIONS: 1. Acetaminophen 650 mg p.o. q.6 hours p.r.n. pain. 2. Docusate cap 100 mg p.o. b.i.d. 3. Enoxaparin 30 mg subcutaneous q.24 hours. 4. Lactulose 15 mg p.o. b.i.d. 5. Levothyroxine 88 mcg p.o. daily. 6. Magic mouthwash 5 mL swish and spit 4 times a day. 7. Magnesium hydroxide 30 mL p.o. q.6 hours p.r.n. constipation. 8. Oxycodone 5 mg p.o. q.4 hours p.r.n. pain. 9. Oxycodone 10 mg p.o. q.4 hours p.r.n. severe pain. 10. Prochlorperazine 10 mg p.o. q.8 hours p.r.n. nausea, vomiting. 11. Senna tab 2 tabs p.o. at bedtime p.r.n. constipation. ALLERGIES: No known drug allergies. SOCIAL HISTORY: The patient does not smoke. The patient does not drink alcohol. She does not use recreational drugs currently. For the past few weeks , she has been living with her daughter; prior to that, she lived on her own. In the event that she is unable to make her own decision, she appoints her daughter, Jen Izaguirre, phone number [phone] to make decisions for her. REVIEW OF SYSTEMS: A 10-point review of systems has been performed. All the pertinent positives and negatives are in the HPI. All other systems are negative. PHYSICAL EXAM: General: Mrs. Calabrese is a small, undernourished, elderly white woman, who is sitting up in her chair with her legs elevated. She is no acute distress. She appears her stated age. Her vital signs are temperature 98.6, heart rate is 84, respiratory rate is 16, oxygen saturation 99%, blood pressure is 126/67. HEENT: Visual merino are grossly intact. Pupils are equally round and reactive to light. Extraocular movements are intact. Sclerae are icteric. Hearing is grossly intact. Oral mucous membranes are moist. There are multiple lesions on the tongue and the oral mucosa. Neck: Full range of motion. Trachea midline. Respiratory: Symmetrical chest expansion with no use of accessory muscles. Lungs are clear to auscultation. There are no rhonchi, wheezes, or rubs. Cardiovascular: Regular rate and rhythm. S1, S2, present. No murmurs, rubs, or gallops. No JVD. Abdomen: Bowel sounds in all quadrants. The abdomen is protuberant and soft. The abdomen is tender to palpation. There is no hepatosplenomegaly. Extremities: Skin is warm and smooth bilaterally. The patient has both upper and lower extremity edema. There is no clubbing or cyanosis. Radial and pedal pulses are 2+ bilaterally. Neuro: The patient is awake, alert, and oriented x3. She is able to move all of her extremities. DIAGNOSTIC STUDIES/LAB DATA: Laboratory data from 09/27/18: WBC 9.5, RBC 2.84 , HGB 8.8, HCT 26, platelets 294. Sodium 137, potassium 3.9, chloride 107, carbon dioxide 26, BUN 15, creatinine 0.38, calcium 7.9, total bilirubin 8.90, AST 91, ALT 67, alk phos 2000, ammonia 60, total protein 4.9, albumin 2.4, globulin 2.5. Urinalysis shows 1+ protein, 2+ bilirubin, positive for urobilinogen, 1+ leukocyte esterase, 3+ WBC. ASSESSMENT AND PLAN: Mrs. Calabrese is a 78-year-old female with a past medical history of pancreatobiliary cancer and hypothyroidism, who is admitted to [facility] for inpatient rehab. Upon discussion with the daughter and the patient, the daughter is concerned with the patient's mouth sores and appetite and lack of oral intake above everything else. At this time, I have ordered mirtazapine 7.5 mg p.o. at bedtime in hopes of stimulating the patient's appetite; one of the side effects is weight gain, which would be welcome in this situation. I suggested continuation of the magic mouthwash prior to meals in hopes that the ulcers in the mouth would be less painful during consumption of food. I also suggest the use of a straw that might bypass some of the mouth sores and make oral intake of some nutrition more comfortable. TIME SPENT: Approximately 40 minutes were spent on this consultation; greater than half of that time was spent with the patient and her daughter, obtaining history, performing a physical and reviewing the plan of care. The patient has been reviewed with my attending, Dr. Lee, who is in agreement with the plan of care. STEPHANY BEEBE [id number]/[facility] #: [id number] [facility]
[2018-09-30] MEDS: oxyCODONE TAB* 5 MG TAB PO PRN ×2 (05:55→11:37)
[2018-09-30] MEDS: Levothyroxine TAB* 88 MCG TAB PO SCH (05:56)
[2018-09-30 06:25] VITALS: BP 132/75
--- NOTE | 2018-09-30 09:13 | PN ---
Progress Note Date of Service: 09/30/18 Note: SUJEY LANGFORD was visited. Nursing and therapy notes read and reviewed. No chest pain or shortness of breath. Right now not experiencing any abdominal pain. She slept well and tolerated mirtazepine ordered by hospitalist. Appreciate hospitalist evaluation as well as palliative care. DNR now in effect and MOLST was completed. Her daughter met with the therapists yesterday and will take her mother home today. Sujey Paulson still likes using magic mouth wash as it decreases her mouth sensitivity. Current Medications: Active Medications Generic Name Dose Route Start Last Admin Trade Name Freq PRN Reason Stop Dose Admin Acetaminophen 650 mg 09/26/18 15:42 Tylenol Tab* PO Q6H PRN FEVER/PAIN Docusate Sodium 100 mg 09/26/18 21:00 09/29/18 20:04 Colace Cap* PO Not Given BID CECELIA Enoxaparin Sodium 30 mg 09/26/18 21:00 09/29/18 20:04 Lovenox(*) SUBCUT 30 mg Q24H CECELIA Administration Lactulose 15 ml 09/27/18 21:00 09/29/18 20:04 Lactulose* PO 15 ml BID CECELIA Administration Levothyroxine Sodium 88 mcg 09/27/18 06:00 09/30/18 05:56 Synthroid Tab* PO 88 mcg DAILY@0600 CECELIA Administration Magnesium Hydroxide 30 ml 09/26/18 16:21 Milk Of Magnesia Liq* PO Q6H PRN CONSTIPATION Mirtazapine 7.5 mg 09/29/18 21:00 09/29/18 20:05 Remeron Tab* PO 7.5 mg BEDTIME CECELIA Administration Multi-Ingredient Mouthwash/Gargle 5 ml 09/28/18 13:00 09/29/18 20:05 Magic Mouth Was-Luis/Maal/Lido* SWISH SPIT 5 ml QID CECELIA Administration Oxycodone HCl 5 mg 09/26/18 17:02 09/29/18 12:01 Roxycodone Tab* PO 5 mg Q4H PRN Administration PAIN - MODERATE TO SEVERE Oxycodone HCl 10 mg 09/26/18 17:04 09/30/18 05:55 Roxycodone Tab* PO 10 mg Q4H PRN Administration PAIN - SEVERE Prochlorperazine 10 mg 09/26/18 15:58 Compazine Tab* PO Q8HR PRN NAUSEA/VOMITING Senna 2 tab 09/26/18 15:42 Senokot Tab* PO BEDTIME PRN CONSTIPATION Vital Signs: Vital Signs Temp Pulse Resp BP Pulse Ox 98.2 F 73 18 132/75 100 09/30/18 05:47 09/30/18 05:47 09/30/18 05:55 09/30/18 05:47 09/30/18 05:55 Exam: GENERAL: Jaundiced, cachectic. No acute distress. Alert and appropriate. LUNGS: Clear to auscultation bilaterally. HEART: regular rate and rhythm ABDOMEN: Soft, +bowel sounds, non-tender, non-distended. No peritoneal signs. EXTREMITIES: Bilateral LE edema. Negative Homans. No calf pain. NEUROLOGIC: CN II-XII intact. Motor 4+/5 BUE and BLE with normal sensation. Assessment/Plan: 1. Pancreatobiliary cancer, stage IV: Chemo has not slowed progression. F/u oncology in 1-2 weeks and GI in 3-4 weeks. Appt at [facility] Oct 06 2. 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 3. 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 Urinary Tract Infection: s/p Levaquin. Her urine cultures were negative and antibiotic d/c'd. 5. Poor PO: Marinol did not help and may have added to her confusion so d/c'd. Started mirtazepine 7.5mg qhs last night. 6. Analgesia: Oxycodone prn 7. DVT Prophylaxis: Lovenox 8. Advanced Directives: DNR. MOLST completed. Daughter is HCP 9. Dispo: Home today with daughter 24hr care and VNS starting 10/02. 09/30/18 09:08
[2018-09-30] MEDS: Lactulose* 15 ML UDC PO SCH (09:33)
[2018-09-30] MEDS: Docusate CAP* 100 MG PO SCH (09:34)
[2018-09-30] MEDS: Magic Mouth Was-BEN/MAAL/LIDO SWISH SPIT SCH (11:40)
--- NOTE | 2018-09-30 12:19 | DS ---
CC: Dr. Munson. DISCHARGE SUMMARY: DATE OF ADMISSION: 09/26/18 DATE OF DISCHARGE: 09/30/18 PRIMARY CARE PROVIDER: Dr. Munson. 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 HISTORY OF PRESENT ILLNESS: For details of her acute hospitalization at [facility] leading up to her admission, please see the note dictated by Dr. Pino on 09/26/18. REHABILITATION COURSE: During her time on the RU, she was noted to have some confusion. She was recently started on Marinol to try to stimulate her appetite. This was discontinued. Her ammonia level was checked, it was elevated at 60. She was started on lactulose b.i.d. Her cognition seemed to improve although not completely back to baseline. She was seen by Speech Therapy and has required prompts to recover her attention to task when she is interrupted. She also sometimes needs to be reoriented to task. She was seen by Occupational Therapy and at the time of discharge requires set up with cues for encouragement for feeding and grooming. For bathing, she needs supervision for her showers with a minimal amount of assistance for drying off. For upper extremity dressing, she is set up with cues and encouragement. For lower body dressing, she needs set up with cues for encouragement but at times may need assistance for getting on socks. She should sit to dress her lower body and would need to be cued for that. For toileting, this can be done supervised, although she may need up to a minimum amount of assistance for lower body re- dressing. For transfers, she is a hand hold assist into the tub and she should sit on a stool once she is in the shower. For toileting, this once again should be supervised and she should be using her walker. She is total assist for any IADLs, but this will come from her daughter who was educated on her functional status prior to discharge. It is noted that she can forget to use her walker. She needs cues for safety and judgment to do her self care routine. She should continue to have occupational therapy at home to maximize independence with her self-care and functional mobility. It is recommended that equipment include a shower seat, walker, and she may eventually need a commode. She participated well with physical therapy and at the time of discharge, was independent with bed mobility, transfers using a 2-wheeled walker and ambulating up to 150 feet using a 2-wheeled walker. She continued 12 -steps using 2 rails independently. Due to her ongoing need for assistance with ADLs and some cognitive impairment, it was discussed with the daughter having her go to a subacute rehabilitation facility, but this was declined by the daughter and she preferred to take her mother home and to take care of her with 24-hour care. She met with the therapists the day prior to discharge to go over her mother's needs. Also during her time on the PMRU, we had a consultation from palliative care. She was changed to a DNR status and a MOLST was completed. The visiting nurse services shall be connected to the [facility] in case she would like to utilize hospice services in the future. In addition, she was seen by the hospitalist service per the daughter's request to make sure that she was medically stable for discharge to her home. The daughter has been very concerned about her nutrition and hydration status. The patient has a severe lack of appetite. She was started on mirtazapine 7.5 mg at bedtime and has seemed to tolerate it thus far. She will need ongoing followup with her primary care provider and Oncology to determine how long she needs to continue using lactulose and in terms of coordinating any further care. There was a question, due to her confusion, when initially she came of a urinary tract infection. She was empirically put on Levaquin awaiting culture results. The culture was negative and the antibiotic was discontinued. MEDICATIONS: 1. Acetaminophen 650 mg q.6 hours p.r.n. 2. Lactulose 15 mL b.i.d. 3. Levothyroxine 88 mcg daily. 4. Oxycodone 5-10 mg q.4 hours p.r.n. pain, not to exceed 4 per day. This was discussed with her daughter. 5. Compazine 10 mg q.8 hours p.r.n. nausea. 6. Magic mouthwash 5 mL swish and spit 4 times daily. 7. Mirtazapine 7.5 mg q.h.s. DISCHARGE CONDITION: Fair. DISCHARGE DISPOSITION: Home with 24-hour care of family. FOLLOWUP: 1. A referral has been sent to visiting nurse services who will see her on . 2. Follow up with Dr. Munson this week. 3. Follow up with the [facility] in 1 to 2 weeks. 4. Follow up with [facility] in 3 to 4 weeks. 5. The patient had previously set up an appointment with Dr. Brar at [facility] on 10/06/18. It is up to the daughter and the patient's discretion of whether they will attend that appointment. DISCHARGE DIAGNOSES: 1. Stage IV pancreaticobiliary cancer. 2. Hepatic encephalopathy. 3. Hypothyroidism. 4. Oral ulcers and sensitivity. 5. Anorexia. [id number]/[facility] #: [id number] [facility]
== END 2018-09-30 11:45 | disposition home health service (06) | DRG 281 ==
LOC: PMRU 15:28
PROVIDERS: ADMIT Physical Medicine & Rehabilitation; ATTEND Physical Medicine & Rehabilitation
PROC: F07Z5ZZ Bed Mobility Treatment (ICD-10-PCS; principal; 2018-09-26)
PROC: F07Z9ZZ Gait Training/Functional Ambulation Treatment (ICD-10-PCS; 2018-09-26)
PROC: F07Z8ZZ Transfer Training Treatment (ICD-10-PCS; 2018-09-26)
PROC: F08Z0ZZ Bathing/Showering Techniques Treatment (ICD-10-PCS; 2018-09-26)
PROC: F08Z1ZZ Dressing Techniques Treatment (ICD-10-PCS; 2018-09-26)
PROC: F08Z3ZZ Feeding/Eating Treatment (ICD-10-PCS; 2018-09-26)
PROC: F06Z6ZZ Communicative/Cognitive Integration Skills Treatment (ICD-10-PCS; 2018-09-26)
DX: C25.7 Malignant neoplasm of other parts of pancreas (principal); Z68.1 Body mass index [BMI] 19.9 or less, adult; K72.90 Hepatic failure, unspecified without coma; Z66 Do not resuscitate; E03.9 Hypothyroidism, unspecified; R63.0 Anorexia; K12.1 Other forms of stomatitis; R60.0 Localized edema; E88.09 Other disorders of plasma-protein metabolism, not elsewhere classified; Z79.891 Long term (current) use of opiate analgesic; Z79.899 Other long term (current) drug therapy
CPT/HCPCS: 36415; 80053; 81003; 81015; 82140; 85025; 87086; A9270-GY; G0515-GO; J1650; Q0164